=== PATIENT | female | born 1985 | race Caucasian/White ===

== ENCOUNTER → 2018-02-25 15:04 | Outpatient (CLI) | payer OTHER, SELFPAY ==
[2018-03-06 11:55] LABS: HPV APTIMA, High Risk Negative (Negative)
[2018-03-06 12:09] LABS: HPV Reflexed? YES, CHARGE PATIENT
== END ==
PROVIDERS: Visit Provider Obstetrics & Gynecology
DX: Z12.4 Encounter for screening for malignant neoplasm of cervix (principal)
CPT/HCPCS: 87624; 88175; G0145

== ENCOUNTER → 2019-02-24 | Outpatient (CLI) | payer OTHER, SELFPAY ==
--- NOTE | 2019-02-24 13:13 | RAD_ITS ---
STUDY: HYSTEROSALPINGOGRAM. REASON FOR EXAM: Female, 33 years old. History of prior ectopic . FLUOROSCOPY TIME (if supplied): (0:37) minutes/seconds TECHNIQUE: A hysterosalpingogram was performed by the gem expert. Imaging was provided. COMPARISON: None. FINDINGS: The uterus is unremarkable. Both fallopian tubes are patent with free spill. RAD/Salpingogram IMPRESSION: Unremarkable hysterosalpingogram. Electronically Signed: Austin Triplett, at 14:29 EDT , Service support ,
== END | disposition home or self-care (01) ==
LOC: RAD 12:56
PROVIDERS: Referring Provider Obstetrics & Gynecology; Visit Provider Obstetrics & Gynecology
DX: Z87.59 Personal history of other complications of pregnancy, childbirth and the puerperium (principal)
CPT/HCPCS: 58340; 74740; Q9967

== ENCOUNTER → 2019-03-05 15:18 | Outpatient (CLI) | payer OTHER, SELFPAY ==
[2019-03-05 16:56] LABS: Prolactin 21.5 ng/mL; Thyroid Stim Hormone (TSH) 1.31 uIU/mL (0.358-3.74)
[2019-03-05 17:11] LABS: Progesterone Level 3.78 ng/mL (See Comment)
== END ==
PROVIDERS: Visit Provider Obstetrics & Gynecology
DX: N92.6 Irregular menstruation, unspecified (principal)
CPT/HCPCS: 36415; 84144; 84146; 84443

== ENCOUNTER 2019-08-02 14:37 | Emergency (ER) | payer OTHER, SELFPAY ==
[2019-08-02 14:39] VITALS: BP 164/105; PULSE 101; RESP 18; TEMP 36.8; O2SAT 96; BMI 30.1
--- NOTE | 2019-08-02 15:14 | EKG12_ITS ---
Test Reason : CP Blood Pressure : / mmHG Vent. Rate : 096 BPM Atrial Rate : 096 BPM P-R Int : 140 ms QRS Dur : 080 ms QT Int : 340 ms P-R-T Axes : 021 000 041 degrees QTc Int : 429 ms Normal sinus rhythm Normal ECG Confirmed by LB RAMOS, RAFY ([id number]), editor map LENNY TURNER ([id number]) on 08/04/2019 1:52:54 PM Referred By: ADÁN/EDWARDO Confirmed By:RAFY ASHER MD
--- NOTE | 2019-08-02 15:16 | ED.VIS.GEN ---
History of Present Illness Chief Complaint: Chest Pain Informant: Patient Onset: Today Narrative: Sudden chest and back pain 3 hours prior to arrival while sitting at her desk at work. Sharp pain. However reports burning sensation in throat. Recently switch from Prevacid to Protonix by PCP with reflux. EGD colonoscopy [address] Vincent diagnosed with your bowel syndrome. Denies any recent cough. No recent travel, surgeries, or immobilizations. No history of PE or DVT. Tobacco history. No family history of MIs at a young age. Denies history of hypertension, diabetes, hypercholesteremia. Denies previous similar symptoms in the past. Prior similar symptoms: No Past Medical History - Allergies and Home Meds Allergies/Adverse Reactions: Allergies penicillin V potassium [From Pen-Vee K] Allergy (Unknown, Verified 08/02/19 14:38) Hives Primary Care Physician: Antonia Church DO [Primary Care Provider] - Smoking Status: Current every day smoker Review of Systems General: Denies: Chills, Fever, Sweats Eyes: Denies: Visual changes - bilaterally, Diplopia ENT: Denies: Rhinorrhea, Sore throat Cardiovascular: Reports: Chest pain. Denies: Palpitations Respiratory: Denies: Dyspnea, Cough, Dyspnea on exertion Gastrointestinal: Denies: Abdominal pain, Nausea, Vomiting, Diarrhea, Melena, Hematochezia Genitourinary: Denies: Dysuria, Hematuria, Frequency Musculoskeletal: Reports: Back pain. Denies: Extremity Pain Skin: Denies: Rash, Wounds Neurological: Denies: Headache, Weakness, Numbness Physical Exam Vital Signs/Narrative: Vital Signs Temp Pulse Resp BP Pulse Ox 08/02/19 14:39 98.2 F 101 H 18 164/105 H 96 Inital Vital Signs reviewed: Yes General: Well nourished Head: Normocephalic, Atraumatic Eyes: Perrl, EOMI ENT: Moist mucous membranes, No rhinorrhea Neck: Supple, Nontender Cardiovascular: Regular rate, Regular rhythm, No murmurs Respiratory: No distress, CTA bilaterally, Chest nontender Abdomen: Soft, Nontender, Nondistended, Normal bowel sounds Back: Nontender, Normal Inspection Extremities: Nontender, No edema Skin: Normal color, No rash Neurological: Alert, Oriented x3, Cranial nerves II-XII grossly intact, Normal Strength, Normal Sensation Psychological: Normal affect, Normal Mood Diagnostic/Tx/Re-eval - EKG Initial EKG Interpretation: Sinus Rhythm - Sinus rhythm 96, no ST or T wave changes. - Medical Decision Making Patient EKG normal. Chest x-ray negative. Troponin negative. White blood cells 13. She is given GI cocktail, burning in throat improve however planes of intermittent sharp pains in her mid chest right chest that would come and go. Denies any pain with deep breaths. However she was slightly tachycardic heart rate 101 on arrival, puts her at low risk Wells criteria for PE. We will add a d-dimer. Took aspirin at home, will treat with morphine, and reevaluate. Current heart score is 2. We will plan for a 3-hour troponin. 1825: D-dimer negative, delta troponin negative. Reevaluation improving symptoms. Will add Carafate to her Protonix. Follow-up as an outpatient for further testing. Signs and symptoms discussed return. All questions were answered. ED Disposition - Plan for ED Patient: Disposition: Home or Assisted Living Diagnosis: Chest pain, Gastritis Instructions: CHEST PAIN, Uncertain Cause Prescriptions: Sucralfate [Carafate] 1 gm PO 4X/DAY #60 tablet Referrals: Antonia Church DO [Primary Care Provider] - 3-5 Days
[2019-08-02 15:24] LABS: Absolute Lymphocyte Count 3.14 X10^3/uL (0.83-4.51); Absolute Neutrophil Count 9.1 X10^3/uL (2.0-7.7); Basophil# 0.03 X10^3/uL; Basophil% 0.2 % (0-1); Eosinophils% 0.8 % (0-5); Hematocrit 39.2 % (37-47); Hemoglobin 13.1 g/dL (12.0-15.0); Lymphocyte # 3.14 X10^3/ul (4.0); Lymphocyte % 24.4 % (19-41); Mean Corp Hgb Conc 33.4 g/dL (32-36); Mean Corpuscular Hgb 32.3 pg (27.0-32.0); Mean Corpuscular Volume 96.6 fL (81-99); Monocyte# 0.46 X10^3/uL; Monocyte% 3.6 % (0-10); NRBC Flagged by Analyzer 0 % (0-5); Neutrophil # 9.12 X10^3/uL (2.7-7.7); Neutrophil % 70.7 % (47-70); Platelet Count 335 K/mm3 (150-450); RBC Distribution Width CV 13.3 % (11.6-14.6); Red Blood Count 4.06 M/mm3 (4.2-5.4); White Blood Count 12.9 K/mm3 (4.4-11.0)
--- NOTE | 2019-08-02 15:28 | RAD_ITS ---
STUDY: X-RAY CHEST REASON FOR EXAM: Female, 33 years old. Chest pain TECHNIQUE: Frontal and lateral views of the chest COMPARISON: 08/04/2015 FINDINGS: The lungs are clear. There are no pleural effusions. There is no pneumothorax. The heart is normal in size. The visualized osseous structures are within normal limits. RAD/Chest PA and Lateral IMPRESSION: No acute thoracic pathology. Electronically Signed: Angel Carranza, at 16:08 EDT Tel , Service support ,
[2019-08-02 15:39] LABS: Anion Gap 7 (5-15); BUN 8 mg/dL (7-18); BUN/Creat Ratio 10.2 RATIO (10-20); Calcium,Total 9.1 mg/dL (8.5-10.1); Chloride 105 mmol/L (98-107); Creatinine, Serum 0.78 mg/dL (0.55-1.02); EST Glomerular Filtration Rate 89 mL/min (>60); Est Glom Filt Rate - Afr Amer 108 mL/min (>60); Estimated Creatinine Clearance 84.07 ml/min; Glucose 94 mg/dL (74-106); Potassium 3.6 mmol/L (3.5-5.1); Sodium Level 137 mmol/L (136-145)
[2019-08-02 15:46] VITALS: BP 135/79; PULSE 87; RESP 23; O2SAT 96; O2SAT 97
[2019-08-02] MEDS: Mag Hydrox/Al Hydrox/Simeth 30 ML UDC PO (15:48)
[2019-08-02 16:13] VITALS: BP 124/74; PULSE 88; RESP 13; O2SAT 99
[2019-08-02] MEDS: Morphine 4 MG/ML Syringe IV (16:19)
[2019-08-02 16:41] LABS: D-Dimer Quantitative (DVT/PE) 0.33 FEU/ug/m (0.27-0.49)
[2019-08-02 17:37] VITALS: BP 150/65; PULSE 89; RESP 24; O2SAT 97
[2019-08-02 18:05] VITALS: BP 138/89; PULSE 88; RESP 20; O2SAT 98
[2019-08-02] MEDS: Ondansetron 4 MG/2 ML Vial IV (18:35)
[2019-08-02 18:41] VITALS: BP 135/74; PULSE 87; RESP 18; O2SAT 96
== END 2019-08-02 18:41 | disposition home or self-care (01) ==
PROVIDERS: Emergency Provider Emergency Medicine
DX: R07.9 Chest pain, unspecified (principal); K29.70 Gastritis, unspecified, without bleeding; K21.9 Gastro-esophageal reflux disease without esophagitis; F17.200 Nicotine dependence, unspecified, uncomplicated
CPT/HCPCS: 71046; 80048; 84484; 85025; 85379; 93005; 96374; 96375; 99284; A4216; J2405

== ENCOUNTER → 2019-08-25 09:35 | Outpatient (CLI) | payer OTHER, SELFPAY ==
[2019-08-02 14:39] VITALS: BMI 30.1
--- NOTE | 2019-08-25 09:50 | RAD_ITS ---
STUDY: X-RAY - ESOPHAGUS (BARIUM SWALLOW) WITH FLUOROSCOPY REASON FOR EXAM: Female, 33 years old. Dysphagia. Chronic heartburn. TECHNIQUE: 13 view(s) of the esophagus were obtained following swallowing of barium. FLUOROSCOPY TIME (if supplied): (0:31) minutes/seconds COMPARISON: None. FINDINGS: There is no demonstrated esophageal foreign body. There is no demonstrated stricture or mucosal abnormality. Normal gastroesophageal junction, without a demonstrated hiatal hernia. The patient ingested a 12 mm tablet of barium without any difficulty. Normal visualized aortic arch and descending thoracic aorta. Normal visualized pulmonary parenchyma. Normal visualized osseous structures of the thorax. RAD/Esophagus Only IMPRESSION: Normal plain film x-ray examination (barium swallow) of the esophagus. Electronically Signed: Austin Triplett, at 14:31 EDT , Service support ,
== END ==
PROVIDERS: Referring Provider Internal Medicine Gastroenterology; Visit Provider Internal Medicine Gastroenterology
DX: R13.10 Dysphagia, unspecified (principal)
CPT/HCPCS: 74220

== ENCOUNTER → 2020-06-22 | Outpatient (CLI) | payer OTHER, SELFPAY ==
[2020-06-28 20:17] LABS: HPV Reflexed? NOT INDICATED
== END | disposition home or self-care (01) ==
LOC: LABSPEC 16:59
PROVIDERS: Visit Provider Obstetrics & Gynecology
DX: Z12.4 Encounter for screening for malignant neoplasm of cervix (principal); R30.0 Dysuria
CPT/HCPCS: 87086; 87088; 88175; G0145

== ENCOUNTER 2021-04-10 23:06 | Emergency (ER) | payer OTHER, SELFPAY ==
[2021-04-10 23:07] VITALS: BP 164/86; PULSE 98; RESP 18; TEMP 36.2; O2SAT 99; BMI 31.8
[2021-04-10] MEDS: Cefdinir 300 MG Capsule PO (23:51)
[2021-04-10] MEDS: Naproxen 500 MG Tablet PO (23:56)
--- NOTE | 2021-04-11 00:37 | EX.ED.DYSGE1 ---
HPI History of Present Illness Chief Complaint: Ear Problem Informant: patient Narrative Narrative: Patient is a 35-year-old female who presents to the emerge department for left ear pain. This started earlier today. She describes the pain as an 8 out of 10. Does go down the left jaw and down the left neck. No discharge from the ear. She denies having history of this in the past. She has not been swimming. She denies any history of diabetes. She denies any fevers or chills. No issues with handling secretions or shortness of breath. She does get some pain with swallowing down the left side of her neck. She took one of her home tramadol's which did not give significant relief. She denies cough, abdominal pain or nausea/vomiting. No diarrhea. [facility] Medical History (Updated 04/10/21 @ 23:[address] Gustavo Mccain DO) Hypertension Home Medications cyclobenzaprine 10 mg PO TID PRN PRN 04/29/15 [History Last Taken Unknown] L norgest/e.estradiol-e.estrad [LoJaimiess] tab 04/10/21 [History Last Taken Unknown] amitriptyline 12.5 mg PO QHS 04/10/21 [History Last Taken Unknown] cefdinir 300 mg PO BID 7 Days #14 cap 04/10/21 [Rx Last Taken Unknown] diclofenac sodium PO 04/10/21 [History Last Taken Unknown] gabapentin 100 mg PO TID 04/10/21 [History Last Taken Unknown] loratadine [Claritin] 10 mg PO DAILY 04/10/21 [History Last Taken Unknown] pantoprazole 40 mg PO BID 04/10/21 [History Last Taken Unknown] propranolol 10 mg PO BID 04/10/21 [History Last Taken Unknown] tramadol 50 mg PO BID PRN 04/10/21 [History Last Taken Unknown] Allergy/AdvReac Type Severity Reaction Status Date / Time penicillin V potassium Allergy Unknown Hives Verified 04/10/21 23:06 [From Kary Brandon] Social History Smoking Status: Current every day smoker tobacco type: cigarettes ROS ROS ED Constitutional Constitutional ED: Denies chills or fever(s) Eyes Eyes: Denies change in vision ENT ENT ED: Reports ear pain; Denies epistaxis or rhinorrhea Cardiovascular Cardiovascular: Denies chest pain or palpitations Respiratory/Chest Respiratory/Chest: Denies cough, dyspnea or dyspnea on exertion Gastrointestinal Gastrointestinal: Denies abdominal pain, diarrhea, nausea or vomiting Musculoskeletal Musculoskeletal: Reports neck pain; Denies back pain Integumentary Denies rash Neurologic Neurologic: Denies dizziness, headache(s) or weakness EXAM Physical Exam Const Vital Signs: 04/10/21 23:07 Temperature 97.2 F L Temperature Source Temporal Pulse Rate 98 Respiratory Rate 18 Blood Pressure 164/86 H Blood Pressure Mean 112 Pulse Ox 99 Oxygen Delivery Method Room Air Positive well nourished and well developed General Appearance ED: well developed and NAD HEENT Reports normocephalic, head/scalp atraumatic and moist mucous membranes HEENT Narrative: Right tympanic membrane obstructed view due to cerumen impaction. Left tympanic membrane has a partial view obstruction but there is erythematous, bulging of the tympanic membrane. No rupture appreciated. No discharge. No external ear changes. No evidence of malignant otitis media. No pain over mastoid process. Oropharynx is clear. No swelling appreciated. Uvula midline. No muffled voice. Eyes PERRL and EOMs intact bilaterally Neck supple Lymph Lymphatic Narrative: Tender cervical lymphadenopathy on the left side. Chest Wall inspection of chest normal Resp normal respiratory effort and clear to auscultation bilaterally Auscultation: Negative for rales, rhonchi or wheezes Cardio regular rate, regular rhythm and no murmurs GI normal to inspection, nondistended, normoactive bowel sounds and non-tender Palpation: soft; Negative for guarding or rebound tenderness present Extremity normal to inspection General Extremety ED: Negative for edema or tenderness General Extremity: Negative for edema Neuro oriented x3, CN's II-XII intact bilaterally and no sensory deficits noted Sensorium / Orientation: alert Motor Exam: strength 5/5 throughout Psych mental status grossly normal Skin no rashes or lesions noted MDM MDM MDM Narrative Medical decision making narrative: Patient presents to the emergency department for left ear pain. On exam it does appear she has otitis media. We will treat this with cefdinir as she does have an allergy to penicillin that is not anaphylaxis. She is given a dose of Naprosyn. Recommend home symptomatic treatment. She is to follow-up with her PCP. Return precautions are reviewed. She understands and is agreeable this plan. Discharge Plan Triage Chief Complaint: Ear Problem ED Provider: Gustavo Mccain Dx/Rx/DC Orders Clinical Impression: Otitis media Instructions: ED Otitis Media Antibiotic ... Prescriptions: New cefdinir 300 mg capsule 300 mg PO BID 7 Days Qty: 14 RF: 0 No Action cyclobenzaprine 10 MG tablet 10 mg PO TID PRN PRN (Reason: Headache) RF: 0 tramadol 50 mg Tablet 50 mg PO BID PRN (Reason: Pain) RF: 0 propranolol 10 mg Tablet 10 mg PO BID RF: 0 amitriptyline 25 mg Tablet 12.5 mg PO QHS RF: 0 pantoprazole 40 mg Tablet,Delayed Release (Dr/Ec) 40 mg PO BID RF: 0 diclofenac sodium 75 mg tablet,delayed release (DR/EC) PO RF: 0 loratadine [Claritin] 10 mg Tablet 10 mg PO DAILY RF: 0 gabapentin 100 mg Tablet 100 mg PO TID RF: 0 L norgest/e.estradiol-e.estrad [LoJaimiess] 0.10 mg-20 mcg (84)/10 mcg (7) tablets,dose pack,3 month RF: 0 Stand Alone Forms: ED Work / School Excuse Referrals: KENDALL ROSE [Other] - 3-5 Days Disposition Disposition: Home, self care Discharge Date/Time: 04/11/21 00:03
== END 2021-04-11 00:03 | disposition home or self-care (01) ==
PROVIDERS: Emergency Provider Emergency Medicine
DX: H66.92 Otitis media, unspecified, left ear (principal); F17.210 Nicotine dependence, cigarettes, uncomplicated; I10 Essential (primary) hypertension; Z79.899 Other long term (current) drug therapy
CPT/HCPCS: 99283

== ENCOUNTER 2021-12-12 12:22 | Outpatient (CLI) | payer OTHER, SELFPAY ==
[2021-12-17 13:41] LABS: HPV Reflexed? NOT INDICATED
== END 2021-12-12 23:59 | disposition home or self-care (01) ==
LOC: LABSPEC 12:25
PROVIDERS: Visit Provider Obstetrics & Gynecology
DX: Z12.4 Encounter for screening for malignant neoplasm of cervix (principal)
CPT/HCPCS: 88175; G0145